=== PATIENT | male | born 1945 | race African-American/Black ===

== ENCOUNTER 2016-10-01 18:37 | Emergency (ER) | payer OTHER ==
[~2016-10-01] VITALS: Ht 170.2 cm; Wt 130.4 kg
[2016-10-01 19:28] LABS: HEMATOCRIT 43.6 % (38.0-50.0); MCH 27.8 PG (29.0-34.0); MCHC 31.2 G/DL (30.0-36.0); MCV 89.2 FL (86-99); MEAN PLAT.VOLUME 10.5 uM^3 (9.0-12.4); PLATELET COUNT 212 K/uL (156-360); RBC DIS.WIDTH-CV 13.6 % (11.8-14.6); RBC DIS.WIDTH-SD 44.4 % (39-53); RED BLOOD COUNT 4.89 M/uL (4.00-5.50); WHITE BLOOD COUNT 19.5 K/uL (4.1-10.2)
[2016-10-01 19:33] LABS: CHLORIDE 108 mEq/L (99-109); SODIUM 141 mEq/L (136-147)
[2016-10-01 19:35] LABS: GLUCOSE 131 mg/dL (70-99)
[2016-10-01 19:36] LABS: ANION GAP 10 MEQ/L (2-14)
[2016-10-01 19:39] LABS: GFR ESTIMATE (CALCULATED) > 59 mL/min/
[2016-10-01 19:40] LABS: INTER. NORMALIZED RATIO 1.9; PROTHROMBIN TIME 19.3 (9.2-11.2); PTT 32.7 (25-32); UREA NITROGEN (BUN) 13 mg/dL (9-23)
[2016-10-01 21:48] LABS: ADD MIUA? NO; BILIRUBIN NEGATIVE; BLOOD NEGATIVE; COLOR YELLOW ((YELLOW)); GLUCOSE (STRIP) NEGATIVE; KETONES 5; LEUKOCYTES NEGATIVE; NITRITE NEGATIVE; PROTEIN (STRIP) 30; SPECIFIC GRAVITY 1.024 (1.000-1.030); UCUL ADDED? NO; UROBILINOGEN 0.2 MG/DL (0.2-1.0)
[2016-10-01] MEDS ORDERED: NORCO 5/3251 TABLET PO (21:53)
[2016-10-01 22:21] VITALS: BP 143/80
== END 2016-10-01 22:39 | disposition home or self-care (01) ==
LOC: TRA 18:37
PROVIDERS: Physician Assistant
PROC: 2W3CX1Z Immobilization of Right Lower Arm using Splint (ICD-10-PCS; principal; 2016-10-01)
DX: S52.501A Unspecified fracture of the lower end of right radius, initial encounter for closed fracture (principal); S52.601A Unspecified fracture of lower end of right ulna, initial encounter for closed fracture; S60.222A Contusion of left hand, initial encounter; S20.219A Contusion of unspecified front wall of thorax, initial encounter; V49.50XA Passenger injured in collision with unspecified motor vehicles in traffic accident, initial encounter; I48.91 Unspecified atrial fibrillation; Z79.01 Long term (current) use of anticoagulants; I10 Essential (primary) hypertension; E78.5 Hyperlipidemia, unspecified
CPT/HCPCS: 73100; 73110; 73120; 73130; 80048; 81003; 85027; 85610; 85730; 99281; 99284; J2270; J3010